=== PATIENT | female | born 1995 | race Caucasian/White ===

== ENCOUNTER 2019-09-20 16:33 | Observation (INO) | payer BC, SELFPAY ==
[2019-09-20] VITALS (32 sets, daily range): BP systolic 118; BP diastolic 60; PULSE 84–128; RESP 18; TEMP 37.1; O2SAT 97–100; BMI 28.2
[2019-09-20 17:28] LABS: Add Urine Microscopic? NO; Appearance Urine Clear (Clear); Bilirubin Urine Negative (Negative); Blood Urine Negative (Negative); Color Urine Straw (Yellow); Glucose Urine UA Negative (Negative); Ketones Urine Negative (Negative); Leukocyte Esterase Ur Negative LEU/UL (NEGATIVE); Nitrate Urine Negative (Negative); Protein Urine Negative (Negative); Specific Grav Ur 1.009 (1.001-1.035); Urobilinogen Urine Negative mg/dL (<2.0)
[2019-09-20] MEDS: TERBUTALINE SULFATE 1 MG/ML VIAL 0.25 MG SUB-Q (17:30)
--- NOTE | 2019-09-20 17:42 | OBADM ---
This patient, Cong Robison, admitted to the OB room OB Post [facility] for observation. Patient/family oriented to hospital policies and general routines including ID bracelet, bed and alarms, visiting hours, pain management, procedures, bathroom and other care routines, personal items, smoking policy, room service/diet, and visiting hours. Patient/Family are encouraged to report perceived risks to care and to ask questions if they do not understand what they are told or what they should do.
[2019-09-20] MEDS: ONDANSETRON HCL ODT 4 MG TABLET PO (19:29)
--- NOTE | 2019-09-24 11:41 | P.PNOB_ITS ---
OB - Triage/Final Diagnosis Visit Information Reason for evaluation: threatened labor Evaluation Laboratory results: Laboratory Tests 09/20/19 17:21 Urine Color Straw Urine Appearance Clear Urine pH 8.0 Ur Specific [place] 1.009 Urine Protein Negative Urine Glucose (UA) Negative Urine Ketones Negative Ur Blood (Man) Negative Urine Nitrate Negative Urine Bilirubin Negative Urine Urobilinogen Negative Ur Leukocyte Esterase Negative
== END 2019-09-20 20:22 | disposition home or self-care (01) ==
PROVIDERS: Admitting Provider Obstetrics & Gynecology; PCP Family Medicine Adolescent Medicine; Visit Provider Obstetrics & Gynecology
DX: O47.03 False labor before 37 completed weeks of gestation, third trimester (principal); Z3A.34 34 weeks gestation of pregnancy
CPT/HCPCS: 81003; 87077; 87086; 87088; 96372; A9270; G0378; G0379; J3105

== ENCOUNTER 2019-09-21 09:08 | Observation (INO) | payer BC, SELFPAY ==
[2019-09-21 09:20] VITALS: BP 118/81; PULSE 91
[2019-09-21 09:30] VITALS: BP 113/76; PULSE 103; TEMP 37.1
[2019-09-21 09:45] VITALS: BP 101/63; PULSE 81
[2019-09-21 10:00] VITALS: BP 112/72; PULSE 86
[2019-09-21 10:25] LABS: Basophils Absolute Auto 0.1 K/mm3 (0.0-0.1); Basophils Percent Auto 0.5 % (0.2-1.2); Eosinophils Percent Auto 0.1 % (0-4.4); Hematocrit 36.7 % (37.0-47.0); Hemoglobin 12.4 g/dL (12.0-15.0); Immature Granulocyte Percent A 2.8 % (0-0.5); Lymphocytes Absolute Auto 0.65 K/mm3 (0.9-3.2); Mean Corpuscular HGB Conc 33.8 g/dl (32-36); Mean Corpuscular Hemoglobin 32.6 pg (26-34); Mean Corpuscular Volume 96.6 fl (80-100); Mean Platelet Volume 8.7 fl (7.4-10.4); Monocytes Absolute Auto 0.9 K/mm3 (0.1-0.6); Monocytes Percent Auto 8.3 % (2.6-8.5); Neutrophils Absolute Auto 8.9 K/mm3 (1.3-6.7); Neutrophils Percent Auto 82.3 % (45.5-73.1); Platelet Count Result 223 k/mm3 (150-375); Red Cell Distribution Width 13.1 % (11.5-14.5); White Blood Count 10.8 K/mm3 (4.5-10.0)
[2019-09-21] MEDS: NIFEdipine 10 MG CAPSULE 20 MG PO (10:25)
[2019-09-21] MEDS: ONDANSETRON HCL ODT 4 MG TABLET PO (10:26)
[2019-09-21 10:37] LABS: Alanine Aminotransferase 19 U/L (4-35); Albumin Level 3.4 g/dL (3.5-5.1); Alkaline Phosphatase 103 U/L (38-126); Aspartate Amino Transferase 26 U/L (14-36); Bilirubin,Total 1.4 mg/dL (0.2-1.3); Blood Urea Nitrogen 8 mg/dL (7-17); Calcium 8.5 mg/dL (8.4-10.2); Carbon Dioxide 24 mmol/L (22-30); Chloride 100 mmol/L (98-107); Estimated Glomerular Filt Rate > 60; Glucose 86 mg/dL (65-105); Potassium 3.7 mmol/L (3.4-5.0); Sodium 135 mmol/L (137-145)
[2019-09-21 10:55] LABS: Add Urine Microscopic? YES; Appearance Urine Clear (Clear); Bacteria Urine Trace /hpf; Bilirubin Urine Negative (Negative); Blood Urine Negative (Negative); Color Urine Yellow (Yellow); Glucose Urine UA Negative (Negative); Ketones Urine 1+ mg/dL (Negative); Leukocyte Esterase Ur Negative LEU/UL (Negative); Nitrate Urine Negative (Negative); Protein Urine Negative (Negative); RBC Urine 0-2 /hpf (0-2); Specific Grav Ur 1.014 (1.001-1.035); Squamous Epithelial Cell Urine Many /hpf (Few); Urobilinogen Urine Negative mg/dL (<2.0); WBC Urine 0-3 /hpf
[2019-09-21 11:01] VITALS: BMI 28.2
--- NOTE | 2019-10-01 10:16 | PM.OBTRLD ---
OB - Triage/Final Diagnosis Visit Information Reason for evaluation: other (Nausea and vomiting , cramping in ) Evaluation Laboratory results: Laboratory Tests 09/21/19 09/21/19 09/21/19 10:15 10:17 10:40 WBC 10.8 H RBC 3.80 L Hgb 12.4 Hct 36.7 L MCV 96.6 MCH 32.6 MCHC 33.8 RDW 13.1 Plt Count 223 MPV 8.7 Immature Gran % (Auto) 2.8 H Neut % (Auto) 82.3 H Lymph % (Auto) 6.0 L [place] % (Auto) 8.3 Eos % (Auto) 0.1 Baso % (Auto) 0.5 Lymph # (Auto) 0.65 L [place] # (Auto) 0.9 H Eos # (Auto) 0.0 Baso # (Auto) 0.1 Abs Immat Gran (auto) 0.30 H Absolute Neuts (auto) 8.9 H Absolute Nucleated RBC 0.0 Nucleated RBC % 0.0 Sodium 135 L Potassium 3.7 Chloride 100 Carbon Dioxide 24 BUN 8 Creatinine 0.50 L Estim Creat Clear Calc Not Reportable Estimated GFR > 60 Glucose 86 Calcium 8.5 Total Bilirubin 1.4 H AST 26 ALT 19 Alkaline Phosphatase 103 Total Protein 6.0 L Albumin 3.4 L Urine Color Yellow Urine Appearance Clear Urine pH 8.0 Ur Specific [place] 1.014 Urine Protein Negative Urine Glucose (UA) Negative Urine Ketones 1+ H Ur Blood (Man) Negative Urine Nitrate Negative Urine Bilirubin Negative Urine Urobilinogen Negative Leukocyte Esterase Rfl Negative Urine RBC 0-2 Urine WBC 0-3 Ur Squamous Epith Cells Many H Urine Bacteria Trace
== END 2019-09-21 12:39 | disposition home or self-care (01) ==
PROVIDERS: Admitting Provider Obstetrics & Gynecology; PCP Family Medicine Adolescent Medicine; Visit Provider Obstetrics & Gynecology
DX: O26.893 Other specified pregnancy related conditions, third trimester (principal); R10.9 Unspecified abdominal pain; O21.2 Late vomiting of pregnancy; Z3A.34 34 weeks gestation of pregnancy
CPT/HCPCS: 36415; 80053; 81001; 85025; A9270; G0378; G0379

== ENCOUNTER 2019-10-25 05:16 | Inpatient (IN) | payer BC, SELFPAY ==
[2019-10-24 08:30] VITALS: BMI 29.3
[2019-10-24 18:17] VITALS: PULSE 88; RESP 18
[2019-10-24 18:32] VITALS: PULSE 80; RESP 20
[2019-10-25] VITALS (99 sets, daily range): BP systolic 87–146; BP diastolic 42–120; PULSE 74–168; RESP 14–20; TEMP 36.4–36.9; O2SAT 97–100
--- NOTE | 2019-10-25 05:31 | LDADM ---
This patient, Cong Robison, was admitted to Labor/Delivery/Recovery 107 on 10/25/19 at 05:16. Plans for labor, pain management and were discussed with patient. Patient/family oriented to hospital policies and general routines including ID bracelet, bed and alarms, visiting hours, pain management, procedures, bathroom and other care routines, personal items, smoking policy, room service/diet and guest tray routines, infant security routines, and visiting hours. Patient/Family are encouraged to report perceived risks to care and to ask questions if they do not understand what they are told or what they should do. See OBIX for further documentation.
[2019-10-25 05:50] LABS: Basophils Percent Auto 0.3 % (0.2-1.2); Eosinophils Percent Auto 0.4 % (0-4.4); Hematocrit 37.6 % (37.0-47.0); Hemoglobin 12.6 g/dL (12.0-15.0); Immature Granulocyte Absolute 0.23 K/mm3 (0.00-0.031); Immature Granulocyte Percent A 2.3 % (0-0.5); Lymphocytes Absolute Auto 1.79 K/mm3 (0.9-3.2); Lymphocytes Percent Auto 17.6 % (18.3-44.2); Mean Corpuscular HGB Conc 33.5 g/dl (32-36); Mean Corpuscular Hemoglobin 32.1 pg (26-34); Mean Corpuscular Volume 95.9 fl (80-100); Mean Platelet Volume 8.8 fl (7.4-10.4); Monocytes Absolute Auto 1.3 K/mm3 (0.1-0.6); Monocytes Percent Auto 12.4 % (2.6-8.5); Neutrophils Absolute Auto 6.8 K/mm3 (1.3-6.7); Platelet Count Result 236 k/mm3 (150-375); Red Blood Count 3.92 M/mm3 (4.2-5.4); Red Cell Distribution Width 13.6 % (11.5-14.5); White Blood Count 10.2 K/mm3 (4.5-10.0)
[2019-10-25] MEDS: LACTATED RINGERS 1,000 ML 125 ML IV CONT ×3 (05:56→15:50)
[2019-10-25] MEDS: AMPICILLIN 2 GM/NS 100 ML 2 GM/100 ML BAG IVPB (05:56)
[2019-10-25] MEDS: OXYTOCIN 30 UNITS/NS 500 ML 30 UNITS/500 ML BAG 6 UNITS IV CONT (05:56)
[2019-10-25 07:04] LABS: Rapid Plasma Reagin Non-Reactive (NonReactive)
[2019-10-25] MEDS: ONDANSETRON INJ 4 MG/2 ML VIAL IV PUSH (08:05)
--- NOTE | 2019-10-25 09:34 | WPDOBADMIT ---
Obstetrics - Admit Note Admission Note: record reviewed. No pertinent additions to the history and/or any subsequent changes in the physical findings that are not consistent with the expected course of the were found. Additions to the history and/or subsequent changes in the physical findings follow. Here for MIL at 39 wks. Cervix 1-2/50/-2 AROM with clear fluid. FHTs reactive.
[2019-10-25] MEDS: AMPICILLIN 1 GM/NS 50 ML 1 GM/50 ML BAG IVPB ×2 (10:06→14:23)
--- NOTE | 2019-10-25 13:27 | WPDANESEPP ---
Anes - Eval Pre Procedure Procedure: Labor epidural Date/Time: 10/25/19 13:27 Surgeon: Loren Mckenna M.D. Preop Diagnosis: pain during labor Pre Op Diagnosis: Induction of labor Patient Data Age: 24 Gender: F Height: Weight: Last Vital Signs Temp 36.6 C 10/25/19 11:30 Pulse 90 10/25/19 12:34 BP 126/62 10/25/19 12:34 Allergies Allergy/AdvReac Type Severity Reaction Status Date / Time No Known Allergies Allergy Verified 09/20/19 19:23 Home Medications Medication Instructions Recorded Confirmed Type 400 mcg PO DAILY 09/20/19 10/25/19 History ferrous sulfate 27 mg PO DAILY 09/20/19 10/25/19 History ergocalciferol (vitamin D2) 50,000 unit PO WEEKLY 09/21/19 10/25/19 History [Vitamin D2] ondansetron HCl [Zofran] 4 mg PO Q6H PRN #10 tablet 09/21/19 10/25/19 Rx Laboratory Tests 10/25/19 10/25/19 10/25/19 05:42 05:42 05:42 WBC 10.2 K/mm3 H K/mm3 (4.5-10.0) RBC 3.92 M/mm3 L M/mm3 (4.2-5.4) Hgb 12.6 g/dL g/dL (12.0-15.0) Hct 37.6 % % (37.0-47.0) MCV 95.9 fl fl (80-100) MCH 32.1 pg pg (26-34) MCHC 33.5 g/dl g/dl (32-36) RDW 13.6 % % (11.5-14.5) Plt Count 236 k/mm3 k/mm3 (150-375) MPV 8.8 fl fl (7.4-10.4) Immature Gran % (Auto) 2.3 % H % (0-0.5) Neut % (Auto) 67.0 % % (45.5-73.1) Lymph % (Auto) 17.6 % L % (18.3-44.2) [place] % (Auto) 12.4 % H % (2.6-8.5) Eos % (Auto) 0.4 % % (0-4.4) Baso % (Auto) 0.3 % % (0.2-1.2) Lymph # (Auto) 1.79 K/mm3 K/mm3 (0.9-3.2) [place] # (Auto) 1.3 K/mm3 H K/mm3 (0.1-0.6) Eos # (Auto) 0.0 K/mm3 K/mm3 (0-0.3) Baso # (Auto) 0.0 K/mm3 K/mm3 (0.0-0.1) Abs Immat Gran (auto) 0.23 K/mm3 H K/mm3 (0.00-0.031) Absolute Neuts (auto) 6.8 K/mm3 H K/mm3 (1.3-6.7) Absolute Nucleated RBC 0.0 K/mm3 K/mm3 (0.0-0.012) Nucleated RBC % 0.0 % % (0.0-0.2) RPR Non-reactive (NonReactive) Blood Type O Positive Antibody Screen Negative Patient hx anesthesia problems: none Family hx anesthesia problems: none [facility] Family History Family History (Updated 10/07/19 @ 15:40 by Basilio Juarez RN) Mother Brain tumor Father Heart disease Social History Social History Smoking status: Never smoker Substance use: never Gender identity (if verbalized by the patient): Female Spiritual care concerns: No Exam Day of Procedure 10/25/19 13:27
[2019-10-25] MEDS: ceFAZolin 2 GM/D5W 50 ML 2 GM/50 ML BAG IVPB (16:00)
--- NOTE | 2019-10-25 16:41 | P.PNOB_ITS ---
OB - PN: Subj Subjective Date/time seen: 10/25/19 16:41 Interval history: called by RN for nonvetex presentation. U/s done and breech. Plan for csecion. OB - PN: Obj Data Labs CBC & Chem 7: 10/25/19 05:42 Labs: Laboratory Results - last 24 hr 10/25/19 10/25/19 10/25/19 05:42 05:42 05:42 WBC 10.2 H RBC 3.92 L Hgb 12.6 Hct 37.6 MCV 95.9 MCH 32.1 MCHC 33.5 RDW 13.6 Plt Count 236 MPV 8.8 Immature Gran % (Auto) 2.3 H Neut % (Auto) 67.0 Lymph % (Auto) 17.6 L [place] % (Auto) 12.4 H Eos % (Auto) 0.4 Baso % (Auto) 0.3 Lymph # (Auto) 1.79 [place] # (Auto) 1.3 H Eos # (Auto) 0.0 Baso # (Auto) 0.0 Abs Immat Gran (auto) 0.23 H Absolute Neuts (auto) 6.8 H Absolute Nucleated RBC 0.0 Nucleated RBC % 0.0 RPR Non-reactive Blood Type O Positive Antibody Screen Negative OB - PN A/P Time Spent With Patient Time: Total time spent is greater than 50% in coordination of care (as documented) at patient's floor/unit and/or counseling patient:
--- NOTE | 2019-10-25 16:42 | PM.OP ---
Procedure Note - Brief Procedure Note - Brief Date of procedure: 10/25/19 Pre-op diagnosis: Induction of labor IUP 39 wks; Breech Post-op diagnosis: same Procedure performed: LTCS Anesthesia: epidural Surgeon: Loren Mckenna MD Drains: Yes (garcia) Packing: No Pathology: none sent Complications: No immediate complications Condition: stable Disposition: PACU Findings: female in double footling breech presentation; cord around shoulder and neck; 6#7oz; Apgars 9/9; nomal appearing tubes, ovaries, and uterus
--- NOTE | 2019-10-25 16:43 | PM.OBDSVD ---
DS: Diagnosis Discharge Diagnosis (1) 39 weeks gestation of : Code(s): Z3A.39 - 39 weeks gestation of Status: Acute (2) Breech presentation: Code(s): O32.1XX0 - Maternal care for breech presentation, not applicable or unspecified Status: Acute (3) delivery delivered: Code(s): O82 - Encounter for delivery without indication Status: Acute OB - DS: Summary OB Procedures : NST and Ultrasound OB Procedures Intrapartum: OB Procedures: : None Peripartum Data Delivery Method: Section complications: none Status at Discharge Functional status at discharge: independent ambulation Overall status at discharge: patient is progressing back to baseline Time Spent with Patient Time attestation: Total time spent providing and/or coordinating discharge services: DS: Data Data Completed and Pending Labs on day of discharge: Labs from last 24 hours 10/25/19 10/25/19 10/25/19 05:42 05:42 05:42 WBC 10.2 H RBC 3.92 L Hgb 12.6 Hct 37.6 MCV 95.9 MCH 32.1 MCHC 33.5 RDW 13.6 Plt Count 236 MPV 8.8 Immature Gran % (Auto) 2.3 H Neut % (Auto) 67.0 Lymph % (Auto) 17.6 L [place] % (Auto) 12.4 H Eos % (Auto) 0.4 Baso % (Auto) 0.3 Lymph # (Auto) 1.79 [place] # (Auto) 1.3 H Eos # (Auto) 0.0 Baso # (Auto) 0.0 Abs Immat Gran (auto) 0.23 H Absolute Neuts (auto) 6.8 H Absolute Nucleated RBC 0.0 Nucleated RBC % 0.0 RPR Non-reactive Blood Type O Positive Antibody Screen Negative Discharge Plan Discharge Attending physician on discharge: Loren Mckenna Discharging Clinician: Loren Mckenna Anticipated Discharge Date/Time: 10/28/19 10:12 Patient Disposition: Home, Self-Care Activity: may shower, may drive after 2 weeks and pelvic rest Diet: regular Wound Care Instructions: incision open to air Patient Instructions: Antibiotic Form Stand Alone Forms: General Discharge Information Follow-up/Referrals: Loren Mckenna MD [Physician] - 1 Week Discharge Medications: New hydrocodone-acetaminophen 5-325 mg Tablet 1 tablet PO Q3H PRN (Reason: Moderate Pain (4-6)) Qty: 15 RF: 0 Continued ergocalciferol (vitamin D2) [Vitamin D2] 1,250 mcg (50,000 unit) Capsule 50,000 unit PO WEEKLY RF: 0 400 mcg Tablet,Chewable 400 mcg PO DAILY RF: 0 ferrous sulfate 27 mg iron Tablet 27 mg PO DAILY RF: 0 Discontinued ondansetron HCl [Zofran] 4 mg Tablet 4 mg PO Q6H PRN (Reason: Vomiting) Qty: 10 RF: 0 Date of admission: 10/25/19 05:16 Primary Care Provider: Rock Conley Admitting Provider: Loren Mckenna Attending physician on admission: Loren Mckenna Condition: Stable
--- NOTE | 2019-10-25 17:32 | OP_ITS ---
DATE OF PROCEDURE: 10/25/2019 PREOPERATIVE DIAGNOSIS: Intrauterine at 39 weeks, breech. POSTOPERATIVE DIAGNOSIS: Intrauterine at 39 weeks, breech. PROCEDURE: Primary low transverse section. SURGEON: Loren Mckenna M.D. ANESTHESIA: Epidural. FINDINGS: Female in the double footling breech presentation. 6 pounds 7 ounces with Apgars of 9 and 9. Normal-appearing tubes, ovaries, and uterus. The cord was noted to be around the shoulder and the neck. ESTIMATED BLOOD LOSS: Not calculated at the time I left the operating room. DESCRIPTION OF PROCEDURE: The patient was taken to the operating room and placed under anesthesia and prepped and draped in the usual sterile fashion in the dorsal lithotomy position. She was prepped and draped in the usual sterile fashion. A Pfannenstiel skin incision was made with a scalpel and carried down to the underlying layer of the fascia. Fascia was nicked in the midline and extended laterally using the Hollins scissors. An Ochsner was used to tent the fascia, which was then dissected off using sharp and blunt dissection. The rectus muscles were in the midline. The peritoneum was tented and entered with Metzenbaum's. The incision was extended with blunt traction. A bladder blade was placed. The vesicouterine perineum was tented and entered with Metzenbaum's. The lower uterine segment was incised in a transverse fashion with a scalpel and extended laterally using blunt traction. The infant's feet were grasped and delivered through the incision. The infant was delivered to the scapula. The right arm was splinted and delivered. The infant was rotated. The left arm was splinted and delivered. The infant was extended on the abdomen, and the head was delivered. The cord was detangled, clamped and cut, and the infant was handed to the waiting OB nurse. The placenta was removed using manual traction. The uterus was cleared of all clots and debris. The uterine incision was closed using 0 Monocryl in a running locked fashion. Same suture was used to imbricate. One additional [id number] suture was required in the midline for hemostasis. The cul-de-sac was irrigated. The uterus was returned to the abdomen. The gutters were irrigated. The incision was again inspected and noted to be hemostatic. The fascia was closed using 0 Vicryl in a running fashion. The subcutaneous tissues were irrigated and made hemostatic using Bovie cautery. Skin was closed using 4-0 Vicryl in a subcuticular fashion. DermaFlex was placed over the incision. The patient was taken to Recovery in stable condition. Heike I MT: Mirela
[2019-10-25] MEDS: OXYTOCIN 30 UNITS/NS 500 ML 30 UNITS/500 ML BAG 125 UNITS IV CONT (17:37)
[2019-10-25] MEDS: KETOROLAC 30 MG/ML VIAL (*BKC) IV PUSH (18:24)
[2019-10-25] MEDS: DEXTROSE 5%/0.45% SOD CHL 1,000 ML 125 ML IV CONT (21:33)
--- NOTE | 2019-10-26 04:17 | PC.NURSE ---
Breast pump provided due to nursing with nipple shield/flat nipples. Instructions given on breast pump care and usage, pumping schedule, nipple care, and collection and storage of breast milk. Encouraged [id number], breast massage and manual expression to stimulate supply. Pumping log provided and reviewed. Assessed patient for correct flange size, placement and draw. Patient verbalizes and demonstrates understanding of instructions.
[2019-10-26] MEDS: IBUPROFEN 600 MG TABLET PO ×3 (05:00→23:06)
[2019-10-26 05:30] VITALS: BP 117/60; PULSE 81; RESP 14; TEMP 36.6; O2SAT 97
[2019-10-26 06:27] LABS: Basophils Percent Auto 0.3 % (0.2-1.2); Eosinophils Percent Auto 0.3 % (0-4.4); Hemoglobin 10.6 g/dL (12.0-15.0); Immature Granulocyte Absolute 0.13 K/mm3 (0.00-0.031); Immature Granulocyte Percent A 1.1 % (0-0.5); Lymphocytes Absolute Auto 1.56 K/mm3 (0.9-3.2); Lymphocytes Percent Auto 13.5 % (18.3-44.2); Mean Corpuscular HGB Conc 33.1 g/dl (32-36); Mean Corpuscular Volume 96.7 fl (80-100); Monocytes Absolute Auto 1.2 K/mm3 (0.1-0.6); Monocytes Percent Auto 10.2 % (2.6-8.5); Neutrophils Absolute Auto 8.7 K/mm3 (1.3-6.7); Neutrophils Percent Auto 74.6 % (45.5-73.1); Platelet Count Result 189 k/mm3 (150-375); Red Blood Count 3.31 M/mm3 (4.2-5.4); Red Cell Distribution Width 13.3 % (11.5-14.5); White Blood Count 11.6 K/mm3 (4.5-10.0)
[2019-10-26] MEDS: MULTIVIT/MIN/PREN/FOL AC/IRON TABLET 1 TAB PO (07:21)
[2019-10-26] MEDS: DOCUSATE SODIUM 100 MG CAPSULE PO ×2 (07:21→16:26)
[2019-10-26 07:30] VITALS: BP 116/62; PULSE 84; RESP 16; TEMP 36.7; O2SAT 100
--- NOTE | 2019-10-26 08:26 | P.PNOB_ITS ---
OB - PN: Subj Subjective Date/time seen: 10/26/19 08:26 Interval history: called by RN for nonvetex presentation. U/s done and breech. Plan for csecion. Patient comments: no complaints and pain well controlled [place] baby status: nursing well feeding status: exclusively breast feeding OB - PN: Obj Data Labs CBC & Chem 7: 10/26/19 05:38 Labs: Laboratory Results - last 24 hr 10/26/19 05:38 WBC 11.6 H RBC 3.31 L Hgb 10.6 L Hct 32.0 L MCV 96.7 MCH 32.0 MCHC 33.1 RDW 13.3 Plt Count 189 MPV 9.0 Immature Gran % (Auto) 1.1 H Neut % (Auto) 74.6 H Lymph % (Auto) 13.5 L [place] % (Auto) 10.2 H Eos % (Auto) 0.3 Baso % (Auto) 0.3 Lymph # (Auto) 1.56 [place] # (Auto) 1.2 H Eos # (Auto) 0.0 Baso # (Auto) 0.0 Abs Immat Gran (auto) 0.13 H Absolute Neuts (auto) 8.7 H Absolute Nucleated RBC 0.0 Nucleated RBC % 0.0 OB - PN A/P Plan day: 1 Plan: routine care Time Spent With Patient Time: Total time spent is greater than 50% in coordination of care (as documented) at patient's floor/unit and/or counseling patient: Exam GI: Other: Inc c/d/i : Bimanual exam- vagina & uterus: other (Uterus firm, nt @U)
--- NOTE | 2019-10-26 10:35 | WPDANLDPN2 ---
Anes-Prog Note L&D Date/Time: 10/26/19 10:35 Comfortable throughout: labor and section Neuraxial method: epidural Epidural/Spinal procedure site: clean & non-tender Neuro status: Neuro function grossly intact. Cardiovascular status: normal Respiratory status: normal Airway patency: baseline Mental status: baseline Post-Op hydration status: normal Vital Signs: Last Vital Signs Temp 36.7 C 10/26/19 07:30 Pulse 84 10/26/19 07:30 Resp 16 10/26/19 07:30 BP 116/62 10/26/19 07:30 Pulse Ox 100 10/26/19 07:30 I/O: Intake & Output 10/25/19 10/26/19 10/26/19 23:59 07:59 15:59 Intake Total 1050 1925 Output Total 1163 1425 600 Balance -113 500 -600 Post-procedural complaints: none Patient feedback: Patient satisfied with anesthetic care.
--- NOTE | 2019-10-26 10:35 | WPDANLDNPN2 ---
Anes-Prog Note L&D-Neuraxial Date/Time: 10/26/19 10:35 Neuraxial medications: epidural PF morphine Opiod-related complaints: none Patient feedback: Patient satisfied with post-operative pain management.
[2019-10-26 11:45] VITALS: BP 109/54; PULSE 91; RESP 18; TEMP 36.9; O2SAT 99
[2019-10-26 16:30] VITALS: BP 116/63; PULSE 82; RESP 16; TEMP 36.6; O2SAT 99
[2019-10-26 19:31] VITALS: BP 129/76; PULSE 86; RESP 18; TEMP 36.4; O2SAT 100
[2019-10-27] MEDS: MULTIVIT/MIN/PREN/FOL AC/IRON TABLET 1 TAB PO (08:23)
[2019-10-27] MEDS: DOCUSATE SODIUM 100 MG CAPSULE PO ×2 (08:23→15:44)
[2019-10-27] MEDS: IBUPROFEN 600 MG TABLET PO ×3 (08:24→21:19)
[2019-10-27 08:30] VITALS: BP 113/62; PULSE 102; RESP 18; TEMP 36.5; O2SAT 99
--- NOTE | 2019-10-27 12:44 | PM.OBPNVD ---
OB - PN: Subj Subjective Date/time seen: 10/27/19 12:44 Interval history: called by RN for nonvetex presentation. U/s done and breech. Plan for csecion. Patient comments: no complaints and pain well controlled [place] baby status: nursing well feeding status: exclusively breast feeding OB - PN: Obj Data Labs CBC & Chem 7: 10/26/19 05:38 OB - PN A/P Plan day: 2 Plan: routine care Time Spent With Patient Time: Total time spent is greater than 50% in coordination of care (as documented) at patient's floor/unit and/or counseling patient: Exam GI: Other: inc c/d/i : Bimanual exam- vagina & uterus: other (Uterus firm, nt @U)
[2019-10-27 20:40] VITALS: BP 120/65; PULSE 78; RESP 18; TEMP 37.1; O2SAT 100
[2019-10-27] MEDS: SIMETHICONE 80 MG TAB.CHEW PO (21:19)
--- NOTE | 2019-10-27 22:30 | PC.NURSE ---
Patient viewed the discharge video Mother & Baby Care, The First Two Weeks . Patient was given the opportunity and encouraged to ask questions. Patient verbalized understanding of information shared and has been given the mother/baby guide for home reference.
[2019-10-28] MEDS: SIMETHICONE 80 MG TAB.CHEW PO ×2 (06:59→12:29)
[2019-10-28] MEDS: DOCUSATE SODIUM 100 MG CAPSULE PO (07:00)
[2019-10-28] MEDS: IBUPROFEN 600 MG TABLET PO ×2 (07:00→12:28)
[2019-10-28] MEDS: MULTIVIT/MIN/PREN/FOL AC/IRON TABLET 1 TAB PO (07:00)
[2019-10-28 07:55] VITALS: BP 116/60; PULSE 82; RESP 18; TEMP 37; O2SAT 98
--- NOTE | 2019-10-28 10:09 | P.PNOB_ITS ---
OB - PN: Subj Subjective Date/time seen: 10/28/19 10:09 Interval history: called by RN for nonvetex presentation. U/s done and breech. Plan for csecion. Patient comments: no complaints and pain well controlled [place] baby status: doing well OB - PN: Obj Data Labs CBC & Chem 7: 10/26/19 05:38 OB - PN A/P Plan day: 3 Plan: routine care, discharge home, follow up 6 weeks and other (1 wk incision check through virtual) Comments: Plans mirena control Time Spent With Patient Time: Total time spent is greater than 50% in coordination of care (as documented) at patient's floor/unit and/or counseling patient: Exam GI: Other: incision c/d/i : Bimanual exam- vagina & uterus: other (Uterus firm, nt @U)
[2019-10-29 09:55] VITALS: BP 135/78; PULSE 91; RESP 20; TEMP 36.6
--- NOTE | 2019-11-21 13:41 | P.HP_ITS ---
H&P: HPI History of Present Illness Chief complaint: Induction of labor Narrative: Cong Robison is a 24 year old female G1 at 39 wks here for MIL. Discovered to be breech and taken for csection. [facility] Past Medical History Medical History (Updated 10/25/19 @ 16:44 by Loren Mckenna MD) 39 weeks gestation of Surgical History Surgical History (Updated 11/21/19 @ 13:59 by Loren Mckenna MD) S/P adenoidectomy Family History Family History (Updated 10/07/19 @ 15:40 by Basilio Juarez RN) Mother Brain tumor Father Heart disease Social History Social History Smoking status: Never smoker Substance use: never Gender identity (if verbalized by the patient): Female Spiritual care concerns: No Meds Home Medications and Allergies Home Medications Medication Instructions Recorded Confirmed Type 400 mcg PO DAILY 09/20/19 10/25/19 History ferrous sulfate 27 mg PO DAILY 09/20/19 10/25/19 History ergocalciferol (vitamin D2) 50,000 unit PO WEEKLY 09/21/19 10/25/19 History [Vitamin D2] hydrocodone-acetaminophen 1 tablet PO Q3H PRN #15 tablet 10/28/19 Rx Allergies Allergy/AdvReac Type Severity Reaction Status Date / Time No Known Allergies Allergy Verified 09/20/19 19:23 Exam Const: General: healthy appearing and alert Orientation/consciousness: patient oriented x3 Resp: Effort & Inspection: normal respiratory effort Auscultation: clear to auscultation bilaterally Cardio: Rate: regular rate Rhythm: regular rhythm GI: GI Palp: Yes Soft to palpation, No Tenderness to palpation present (GI) and No Palpable mass present : External Female Exam: normal external appearance Speculum Exam - Vagina: normal appearance of the vagina Neuro: General: patient oriented x3 Assessment and Plan Assessment and plan (1) Breech presentation: Code(s): O32.1XX0 - Maternal care for breech presentation, not applicable or unspecified Status: Acute Assessment and Plan: proceed with csection (2) 39 weeks gestation of : Code(s): Z3A.39 - 39 weeks gestation of Status: Acute
== END 2019-10-28 14:53 | disposition home or self-care (01) | DRG 788 ==
LOC: ANHLDR 16:46 → ANHOB2 19:30
PROVIDERS: Admitting Provider Obstetrics & Gynecology Gynecology; PCP Family Medicine Adolescent Medicine; Visit Provider Obstetrics & Gynecology Gynecology
PROC: 10D00Z1 Extraction of Products of Conception, Low, Open Approach (ICD-10-PCS; CPT 59514; principal; 2019-10-25 16:00)
DX: O99.824 Streptococcus B carrier state complicating childbirth (principal); Z3A.39 39 weeks gestation of pregnancy; Z37.0 Single live birth; O69.81X0 Labor and delivery complicated by cord around neck, without compression, not applicable or unspecified; O69.82X0 Labor and delivery complicated by other cord entanglement, without compression, not applicable or unspecified; O32.8XX0 Maternal care for other malpresentation of fetus, not applicable or unspecified
CPT/HCPCS: 36415; 85025; 86592; 86850; 86900; 86901; A9270; J0131; J0290; J0690; J1885; J2274; J2405; J2590; J2795; J7120

== ENCOUNTER 2022-08-15 22:05 | Emergency (ER) | payer BC, SELFPAY ==
[2022-08-15] VITALS (8 sets, daily range): BP systolic 126–129; BP diastolic 82–86; PULSE 81–100; RESP 14–27; TEMP 37; O2SAT 98–100
--- NOTE | ~2022-08-15 | CT_ITS ---
EXAMINATION: CT cervical spine wo con DATE: 08/15/2022 23:46 INDICATION: Head injury. TECHNIQUE: Computed tomography (CT) of the cervical spine was performed without intravenous contrast. Automated exposure control and iterative reconstruction technique were employed. The dose-length pro duct was 131.91 mGy-cm. COMPARISON: None FINDINGS: There is mild scarring at the lung apices. There is 4 degrees dextrocurvature of cervical s pine. Vertebral body heights and intervertebral disc heights are normal. At C7-T1, there is mild bila teral facet joint osteoarthritis. No neural foraminal stenosis or central canal stenosis. IMPRESSION: 1. No fracture. Reviewed, dictated and finalized at location A. T [employer] IMPRESSION: 1. No fracture.
--- NOTE | ~2022-08-15 | CT_ITS ---
EXAMINATION: CT brain wo con DATE: 08/15/2022 23:45 INDICATION: Syncope. Head injury. TECHNIQUE: Computed tomography (CT) of the head was performed without intravenous contrast. The mA wa s adjusted according to patient size. Iterative reconstruction technique was employed. The dose-lengt h product was 605.33 mGy-cm. COMPARISON: None FINDINGS: There is no intracranial hemorrhage, acute infarction, or abnormal intracranial mass lesion . The ventricles are normal in size. The paranasal sinuses are clear. The orbits are normal. The mast oid air cells are normal. IMPRESSION: 1. Normal brain. Reviewed, dictated and finalized at location A. GER STUDIO IMPRESSION: 1. Normal brain.
--- NOTE | ~2022-08-15 | XR_ITS ---
EXAMINATION: XR chest 2V DATE: 08/16/2022 00:48 INDICATION: Syncope. Nausea and vomiting. TECHNIQUE: Frontal and lateral views of the chest were obtained. COMPARISON: None. FINDINGS: There is mild scarring at the lung apices. No pleural effusion or pneumothorax. The heart s ize is normal. IMPRESSION: 1. Mild scarring at the lung apices. Reviewed, dictated and finalized at location A. CE LIAISON OFFICER
--- NOTE | 2022-08-15 22:09 | ECG_ITS ---
Measurements Intervals [place] Rate: 88 P: 66 CO: 142 QRS: 78 QRSD: 93 T: 26 QT: 373 QTc: 452 Interpretive Statements SINUS RHYTHM BASELINE WANDER- I, II NORMAL ECG NO PREVIOUS ECG AVAILABLE FOR COMPARISON Electronically Signed On 08-16-2022 7:58:22 [employer] by Santi Suero D.O.
[2022-08-15 22:20] LABS: Basophils Absolute Auto 0.1 K/mm3 (0.0-0.1); Basophils Percent Auto 0.7 % (0.2-1.2); Eosinophils Absolute Auto 0.1 K/mm3 (0-0.3); Eosinophils Percent Auto 0.7 % (0-4.4); Hematocrit 36.1 % (37.0-47.0); Hemoglobin 12.2 g/dL (12.0-15.0); Immature Granulocyte Absolute 0.02 K/mm3 (0.00-0.031); Immature Granulocyte Percent A 0.2 % (0-0.5); Lymphocytes Absolute Auto 3.88 K/mm3 (0.9-3.2); Lymphocytes Percent Auto 41.5 % (18.3-44.2); Mean Corpuscular HGB Conc 33.8 g/dl (32-36); Mean Corpuscular Hemoglobin 31.4 pg (26-34); Mean Platelet Volume 8.9 fl (7.4-10.4); Monocytes Absolute Auto 1.1 K/mm3 (0.1-0.6); Monocytes Percent Auto 11.2 % (2.6-8.5); Neutrophils Absolute Auto 4.3 K/mm3 (1.3-6.7); Neutrophils Percent Auto 45.7 % (45.5-73.1); Platelet Count Result 289 k/mm3 (150-375); Red Blood Count 3.88 M/mm3 (4.2-5.4); Red Cell Distribution Width 11.7 % (11.5-14.5); White Blood Count 9.3 K/mm3 (4.5-10.0)
[2022-08-15 22:38] LABS: Alanine Aminotransferase 19 U/L (6-35); Albumin Level 3.7 g/dL (3.5-5.1); Alkaline Phosphatase 49 U/L (38-126); Anion Gap 8 mmol/L (8-16); Aspartate Amino Transferase 27 U/L (14-36); Bilirubin,Total 0.6 mg/dL (0.2-1.3); Blood Urea Nitrogen 13 mg/dL (7-17); Calcium 7.6 mg/dL (8.4-10.2); Carbon Dioxide 22 mmol/L (22-30); Chloride 109 mmol/L (98-107); Estimated CRCL calculation 114 ml/min; Estimated Glomerular Filt Rate > 60; Glucose 104 mg/dL (65-110); Potassium 2.7 mmol/L (3.4-5.0); Sodium 139 mmol/L (137-145)
[2022-08-15 23:27] LABS: SPREG INTERNAL CONTROL Positive; Serum Qual hCG Negative
--- NOTE | 2022-08-15 23:28 | ED.SYNCOPE ---
HPI - Syncope General Chief Complaint: Syncope Stated Complaint: SYNCOPE/NAUSEA Time Seen by Provider: 08/15/22 22:38 History of Present Illness HPI narrative: This is a 27-year-old female with no significant past medical history, presenting to the emergency department after syncopal episode. The patient states she was sitting on the toilet, having a bowel movement when she felt flushed and nauseous and woke up on the floor. Patient's , who is at bedside, states he heard a thump and came to find her on the floor. The patient denies chest pain, or shortness of breath before or after the incident. She is not sure if she hit her head. She states she has had a few episodes of loose stools earlier today but denies vomiting prior to the fall. She has vomited since the fall. She complains of a 4/10 headache, described as pressure-like without associated weakness, numbness or change in vision. Related Data Home Medications Medication Instructions Recorded Confirmed No Home Medications 08/15/22 08/15/22 Allergies Allergy/AdvReac Type Severity Reaction Status Date / Time No Known Allergies Allergy Verified 08/15/22 22:06 Review of Systems Review of Systems: CONSTITUTIONAL: Denies fever, chills, or sweats. EYES: Denies visual changes, redness, or discharge. ENT: Denies rhinorrhea, congestion, sore throat, or otalgia. CARDIOVASCULAR: Denies chest pain, palpitations, or edema. RESPIRATORY: Denies cough or dyspnea. GASTROINTESTINAL: Nausea and vomiting denies abdominal pain, or diarrhea. GENITOURINARY: Denies dysuria or hematuria. SKIN: Denies rash or itching. MUSCULOSKELETAL: Denies back pain, joint pain, or myalgia. NEUROLOGIC: Headache denies numbness, dizziness, or weakness. PSYCHIATRIC: Denies anxiety or depression. [facility] Past Medical History Medical History 39 weeks gestation of Surgical History Surgical History S/P adenoidectomy Family History Family History Mother Brain tumor Father Heart disease Social History Social History (Updated 08/15/22 @ 23:53 by Severino Adams MD) Smoking status: Never smoker Alcohol intake: current Substance use: never Gender identity (if verbalized by the patient): Female Spiritual care concerns: No Exam Narrative: GENERAL: Well-developed, well-nourished, appears uncomfortable HEAD: Normocephalic, atraumatic. EYES: PERRLA and EOMI. ENT: Nares clear, no rhinorrhea or epistaxis. Mucous membranes moist. Oropharynx without tonsillar hypertrophy exudate or other lesions. NECK: Supple. No adenopathy or masses. No carotid bruits or JVD. No midline spine tenderness to palpation, no step-off or crepitus CHEST: Clear to auscultation. No respiratory distress. No wheezes rales or rhonchi HEART: Regular rate and rhythm. No murmur heard. Normal peripheral pulses. ABDOMEN: Soft, nontender, nondistended, normal active bowel sounds. EXTREMITIES: Normal range of motion. No edema. SKIN: Warm, dry, no rash. NEURO: No focal deficits. Cranial nerves II through XII intact. Strength 5/5 in all extremities, sensation intact bilaterally. Alert and oriented x3. PSYCH: Normal mood and affect. Course Course Emergency Course: 02:36 - Stat rad interpretation of CT C-spine shows no acute fracture or subluxation and no prevertebral soft tissue swelling. Stat rad interpretation of CT head shows no hemorrhage, hydrocephalus, mass-effect, or herniation. C-collar cleared by me. Chemistries demonstrate hypokalemia and mild hypocalcemia without other acute findings. The patient tested negative for flu and COVID. CBC was unremarkable. The patient tested negative for . A chest x-ray on my evaluation, was not concerning for acute cardiopulmonary process. EKG not concerning for arrhyt
[2022-08-15] MEDS: ONDANSETRON INJ 4 MG/2 ML VIAL IV PUSH (23:40)
[2022-08-15] MEDS: LACTATED RINGERS 1,000 ML 999 ML IV CONT (23:41)
--- NOTE | 2022-08-15 23:46 | PC.NURSE ---
Patient actively vomiting and nauseated. Potassium held at this time.
[2022-08-15 23:59] LABS: Influenza A QL RT-PCR Negative (Negative); Influenza B QL RT-PCR Negative (Negative); SARS-CoV-2 RNA PCR Negative
--- NOTE | 2022-08-16 00:36 | PC.NURSE ---
Assumed care of pt at this time, report taken from Florecita CASTRO
[2022-08-16] MEDS: MAGNESIUM SULF 2 GM/WATER 50ML 2 GM/50 ML BAG IVPB (00:51)
[2022-08-16] MEDS: PROCHLORPERAZINE EDISYLATE 10 MG/2 ML VIAL IV PUSH (00:52)
[2022-08-16] MEDS: POTASSIUM CHLORIDE 20 MEQ PACKET (FOR LIQUID) 40 MEQ PO (00:52)
[2022-08-16 01:01] VITALS: BP 117/70; PULSE 98; RESP 16; O2SAT 100
[2022-08-16 02:07] VITALS: BP 116/76; PULSE 78; RESP 13; O2SAT 100
--- NOTE | 2022-08-16 02:23 | PC.NURSE ---
Pt able to ambulate to restroom with steady gait
[2022-08-16 02:50] VITALS: BP 111/67; PULSE 89; RESP 14; O2SAT 99
== END 2022-08-16 02:52 | disposition home or self-care (01) ==
PROVIDERS: Emergency Medicine; Emergency Provider Preventive Medicine Aerospace Medicine; PCP Family Medicine Adolescent Medicine
DX: R55 Syncope and collapse (principal); S06.0XAA Concussion with loss of consciousness status unknown, initial encounter; E87.6 Hypokalemia; Z20.822 Contact with and (suspected) exposure to COVID-19; W18.11XA Fall from or off toilet without subsequent striking against object, initial encounter
CPT/HCPCS: 36415; 70450; 71046; 72125; 80053; 84703; 85025; 87502; 93005; 96361; 96365; 96375; 99284; A9270; J0131; J0780; J2405; J3475; J7120; U0003; U0005

== ENCOUNTER 2024-01-17 03:18 | Observation (INO) | payer OTHER, SELFPAY ==
[2024-01-17 04:52] VITALS: BMI 29.3
--- NOTE | 2024-01-17 04:52 | OBADM ---
This patient, Cong Robison, admitted to the OB room Labor/Delivery/Recovery 102 for observation. Patient/family oriented to hospital policies and general routines including ID bracelet, bed and alarms, visiting hours, pain management, procedures, bathroom and other care routines, personal items, smoking policy, room service/diet, and visiting hours. Patient/Family are encouraged to report perceived risks to care and to ask questions if they do not understand what they are told or what they should do.
--- NOTE | 2024-01-18 19:55 | PM.OBTRLD ---
OB - Triage/Final Diagnosis Visit Information Comments/Additional reasons for admission: I have assessed the risk for this patient, Cong Robison, and determined that she would benefit from observation care. Final Diagnosis (1) Irregular contractions: Code(s): O47.9 - False labor, unspecified Status: Acute
== END 2024-01-17 05:06 | disposition home or self-care (01) ==
PROVIDERS: Admitting Provider Obstetrics & Gynecology; PCP Family Medicine; Visit Provider Obstetrics & Gynecology
DX: O47.1 False labor at or after 37 completed weeks of gestation (principal); Z3A.38 38 weeks gestation of pregnancy
CPT/HCPCS: G0378; G0379

== ENCOUNTER 2024-01-20 02:29 | Inpatient (IN) | payer OTHER, SELFPAY ==
[2024-01-20] VITALS (331 sets, daily range): BP systolic 90–138; BP diastolic 37–97; PULSE 65–165; TEMP 36.2–37.1; O2SAT 90–100
[2024-01-20] MEDS: LACTATED RINGERS 1,000 ML 125 ML IV CONT ×4 (03:10→18:24)
[2024-01-20 03:30] LABS: Basophils Percent Auto 0.4 % (0.2-1.2); Eosinophils Percent Auto 0.4 % (0-4.4); Hematocrit 33.8 % (37.0-47.0); Hemoglobin 11.6 g/dL (12.0-15.0); Immature Granulocyte Absolute 0.12 K/mm3 (0.00-0.031); Immature Granulocyte Percent A 1.2 % (0-0.5); Lymphocytes Absolute Auto 1.84 K/mm3 (0.9-3.2); Lymphocytes Percent Auto 18.2 % (18.3-44.2); Mean Corpuscular HGB Conc 34.3 g/dl (32-36); Mean Corpuscular Hemoglobin 31.1 pg (26-34); Mean Corpuscular Volume 90.6 fl (80-100); Mean Platelet Volume 9.1 fl (7.4-10.4); Monocytes Percent Auto 9.5 % (2.6-8.5); Neutrophils Absolute Auto 7.1 K/mm3 (1.3-6.7); Neutrophils Percent Auto 70.3 % (45.5-73.1); Platelet Count Result 271 k/mm3 (150-375); Red Blood Count 3.73 M/mm3 (4.2-5.4); Red Cell Distribution Width 13.5 % (11.5-14.5); White Blood Count 10.1 K/mm3 (4.5-10.0)
[2024-01-20] MEDS: FAMOTIDINE 20 MG/2 ML VIAL IV PUSH ×2 (03:30→18:24)
--- NOTE | 2024-01-20 03:38 | LDADM ---
This patient, Cong Robison, was admitted to Labor/Delivery/Recovery 103 on 01/20/24 at 02:29. Plans for labor, pain management and were discussed with patient. Patient/family oriented to hospital policies and general routines including ID bracelet, bed and alarms, visiting hours, pain management, procedures, bathroom and other care routines, personal items, smoking policy, room service/diet and guest tray routines, security routines, and visiting hours. Patient/Family are encouraged to report perceived risks to care and to ask questions if they do not understand what they are told or what they should do. See OBIX for further documentation.
[2024-01-20] MEDS: ONDANSETRON INJ 4 MG/2 ML VIAL IV PUSH ×2 (04:25→11:37)
[2024-01-20 05:01] LABS: HIV 1/2 Ab P24 Ag Result Negative (Negative)
--- NOTE | 2024-01-20 05:51 | WPDANESEPP ---
Anes - Eval Pre Procedure Procedure: Labor Epidural Date/Time: 01/20/24 05:51 Surgeon: Yordan Preop Diagnosis: Labor Pain Pre Op Diagnosis: SROM Patient Data Age: 28 Gender: F Height: 1.7 m Weight: 87 kg Last Vital Signs Pulse 76 01/20/24 05:45 BP 129/78 01/20/24 05:45 Allergies Allergy/AdvReac Type Severity Reaction Status Date / Time No Known Allergies Allergy Verified 01/09/24 13:27 Home Medications Medication Instructions Recorded Confirmed Type vits no.126-ferrous fum 1 tablet PO DAILY 01/09/24 01/09/24 History 28 mg iron-folic acid 800 mcg tablet (Classic ) Laboratory Tests 01/20/24 03:21 WBC 10.1 H K/mm3 (4.5-10.0) RBC 3.73 L M/mm3 (4.2-5.4) Hgb 11.6 L g/dL (12.0-15.0) Hct 33.8 L % (37.0-47.0) MCV 90.6 fl (80-100) MCH 31.1 pg (26-34) MCHC 34.3 g/dl (32-36) RDW 13.5 % (11.5-14.5) Plt Count 271 k/mm3 (150-375) MPV 9.1 fl (7.4-10.4) Immature Gran % (Auto) 1.2 H % (0-0.5) Neut % (Auto) 70.3 % (45.5-73.1) Lymph % (Auto) 18.2 L % (18.3-44.2) [place] % (Auto) 9.5 H % (2.6-8.5) Eos % (Auto) 0.4 % (0-4.4) Baso % (Auto) 0.4 % (0.2-1.2) Lymph # (Auto) 1.84 K/mm3 (0.9-3.2) [place] # (Auto) 1.0 H K/mm3 (0.1-0.6) Eos # (Auto) 0.0 K/mm3 (0-0.3) Baso # (Auto) 0.0 K/mm3 (0.0-0.1) Abs Immat Gran (auto) 0.12 H K/mm3 (0.00-0.031) Absolute Neuts (auto) 7.1 H K/mm3 (1.3-6.7) Absolute Nucleated RBC 0.000 K/mm3 (0.0-0.012) Nucleated RBC % 0.0 % (0.0-0.2) RPR Pending HIV 1&2 Ab/P24 Ag 4thGn Negative (Negative) Blood Type O Positive Antibody Screen Negative : gestational age (SHANE 01/28/24, ) Patient hx anesthesia problems: none Family hx anesthesia problems: none Results Review: All pre-operative results and documents have been reviewed as part of the pre-operative evaluation. [facility] Past Medical History Medical History 39 weeks gestation of Surgical History Surgical History S/P adenoidectomy Family History Family History Mother Brain tumor Father Heart disease Social History Social History Smoking status: Never smoker Second hand tobacco smoke exposure: No Alcohol intake: current Substance use: never Do You Feel Safe in your Home?: Yes Lack of Transportation: No Lack of Food: Never True Current Housing: I Have Housing Concerned About Future Housing: No Difficulty Paying Gas/Electric Bills: No Difficulty Paying for Meds: No Currently Unemployed: No Education: Bachelor's Degree Difficulty w/ Childcare or Family Care: No Gender identity (if verbalized by the patient): Female Spiritual care concerns: No Exam Day of Procedure 01/20/24 05:51 Patient weight: normal Heart: regular rate and rhythm Lungs: normal air movement Airway: Mallampati scale class II Neurological: alert and oriented
--- NOTE | 2024-01-20 08:20 | PM.IMHP ---
H&P: HPI History of Present Illness Date/Time: 01/20/24 08:20 Chief Complaint: Pt presents after SROM at home, clear fluid. Lee irregularly, started pitocin. FHR category 1. complicated by history of a TOLAC. Pt had a after having extremity presentation. during labor in 2019. This has been uncomplicated, Consents signed. pt has been seeing dr. dunlap for her care Review of Systems Review of Systems: All systems reviewed & are unremarkable except as noted in HPI and below PMFSH Past Medical History Medical History 39 weeks gestation of Surgical History Surgical History S/P adenoidectomy Family History Family History Mother Brain tumor Father Heart disease Social History Social History Smoking status: Never smoker Second hand tobacco smoke exposure: No Alcohol intake: current Substance use: never Do You Feel Safe in your Home?: Yes Lack of Transportation: No Lack of Food: Never True Current Housing: I Have Housing Concerned About Future Housing: No Difficulty Paying Gas/Electric Bills: No Difficulty Paying for Meds: No Currently Unemployed: No Education: Bachelor's Degree Difficulty w/ Childcare or Family Care: No Gender identity (if verbalized by the patient): Female Spiritual care concerns: No Meds Home Medications and Allergies Home Medications Medication Instructions Recorded Confirmed Type vits no.126-ferrous fum 1 tablet PO DAILY 01/09/24 01/09/24 History 28 mg iron-folic acid 800 mcg tablet (Classic ) Allergies Allergy/AdvReac Type Severity Reaction Status Date / Time No Known Allergies Allergy Verified 01/09/24 13:27 Vital Signs Vital Signs - 24 hr 01/20/24 03:00 01/20/24 03:16 01/20/24 03:30 Temperature 36.6 C Pulse Rate 108 H 65 85 Blood Pressure 125/78 125/57 L 117/66 Pulse Oximetry 01/20/24 03:45 01/20/24 04:00 01/20/24 04:15 Temperature Pulse Rate 89 79 86 Blood Pressure 111/77 115/66 116/62 Pulse Oximetry 01/20/24 04:31 01/20/24 04:45 01/20/24 05:00 Temperature 36.9 C Pulse Rate 85 88 90 Blood Pressure 97/54 L 108/61 121/64 Pulse Oximetry 01/20/24 05:15 01/20/24 05:30 01/20/24 05:45 Temperature Pulse Rate 83 79 76 Blood Pressure 116/60 116/57 L 129/78 Pulse Oximetry 01/20/24 06:00 01/20/24 06:01 01/20/24 06:02 Temperature Pulse Rate 111 H 112 H Blood Pressure 120/88 135/84 Pulse Oximetry 100 01/20/24 06:03 01/20/24 06:05 01/20/24 06:06 Temperature Pulse Rate 114 H 98 Blood Pressure 138/81 124/82 Pulse Oximetry 99 01/20/24 06:08 01/20/24 06:10 01/20/24 06:11 Temperature Pulse Rate 82 81 Blood Pressure 120/73 116/72 Pulse Oximetry 100 01/20/24 06:13 01/20/24 06:15 01/20/24 06:16 Temperature Pulse Rate 92 81 Blood Pressure 114/51 L 111/58 L Pulse Oximetry 100 01/20/24 06:18 01/20/24 06:20 01/20/24 06:21 Temperature Pulse Rate 89 88 Blood Pressure 118/68 114/48 L Pulse Oximetry 100 01/20/24 06:23 01/20/24 06:25 01/20/24 06:28 Temperature Pulse Rate 90 82 83 Blood Pressure 113/56 L 109/59 L 107/62 Pulse Oximetry 100 01/20/24 06:30 01/20/24 06:35 01/20/24 06:40 Temperature Pulse Rate 79 Blood Pressure 117/97 H 119/57 L Pulse Oximetry 99 99 100 01/20/24 06:45 01/20/24 06:50 01/20/24 06:55 Temperature Pulse Rate 81 Blood Pressure 109/71 Pulse Oximetry 100 100 99 01/20/24 07:00 01/20/24 07:05 01/20/24 07:10 Temperature Pulse Rate 75 79 Blood Pressure 111/65 110/71 Pulse Oximetry 100 100 99 01/20/24 07:15 01/20/24 07:20 01/20/24 07:26 Temperature Pulse Rate 88 Blood P
[2024-01-20] MEDS: CALCIUM CARBONATE (TUMS) 500 MG (200 MG ELEMENTAL) PO (10:15)
[2024-01-20] MEDS: AMPICILLIN 2 GM/NS 100 ML 2 GM/100 ML BAG IVPB (20:05)
[2024-01-20] MEDS: OXYTOCIN 30 UNITS/NS 500 ML 30 UNITS/500 ML BAG 125 UNITS IV CONT (22:08)
--- NOTE | 2024-01-20 22:19 | P.PCNOB_ITS ---
OB - Vaginal Delivery Note Procedure Delivery date: 01/20/24 Events: Other (hx section) Delivery augmentation: Pitocin Delivery monitor: External FHT and Internal Uterine Route of delivery: Episiotomy description: None Laceration Description: Perineal - 2nd Degree and Labial (left) Delivery repair: vicryl Specimen: No Quantitative Blood Loss (ml): 150 Anesthesia type: Epidural Disposition: Floor Complications: No immediate complications [place] Baby Date of : 01/20/24 Time of : 21:36 Weeks of gestation at delivery: 38 gender: Female presentation: vertex position: Left Occiput Anterior Placenta delivery description: Spontaneous Cord Vessel Description: 3 Vessels score one minute: 8 score five minutes: 9 Narrative: mother and baby skin to skin in stable condition
[2024-01-20] MEDS: ACETAMINOPHEN 325 MG TABLET 650 MG PO (22:50)
[2024-01-20] MEDS: KETOROLAC 15 MG/ML VIAL (*BKC) IV PUSH (23:32)
[2024-01-20] MEDS: HYDROcodone/acetaminophen (*CRX) 5-325 MG TABLET 1 TAB PO (23:32)
[2024-01-21] VITALS (7 sets, daily range): BP systolic 98–127; BP diastolic 53–77; PULSE 74–100; RESP 16–18; TEMP 36.7–37.1; O2SAT 97–99
[2024-01-21] MEDS: ONDANSETRON INJ 4 MG/2 ML VIAL IV PUSH (00:15)
--- NOTE | 2024-01-21 00:43 | OBPPTRN ---
Patient transferred to post room #290 via (wheelchair ). Support person present. Oriented to unit, room, information board, rooming in, admission packet and security measures. Patient verbalizes understanding.
[2024-01-21] MEDS: HYDROcodone/acetaminophen (*CRX) 5-325 MG TABLET 1 TAB PO ×4 (02:50→21:20)
[2024-01-21] MEDS: KETOROLAC 15 MG/ML VIAL (*BKC) IV PUSH ×2 (04:52→09:17)
[2024-01-21 05:08] LABS: Hematocrit 31.8 % (37.0-47.0); Hemoglobin 10.3 g/dL (12.0-15.0)
--- NOTE | 2024-01-21 07:39 | PM.OBPNVD ---
OB - PN: Subj Subjective Date/time seen: 01/21/24 07:39 Interval history: pp day 1 doing well OB - PN: Obj Data Labs 01/21/24 04:47 Labs: Laboratory Results - last 24 hr 01/21/24 04:47 Hgb 10.3 L Hct 31.8 L OB - PN A/P Plan day: 1 Plan: routine care Time Spent With Patient Time: Total time spent is greater than 50% in coordination of care (as documented) at patient's floor/unit and/or counseling patient: Review of Systems Review of Systems: All systems reviewed & are unremarkable except as noted in HPI and below Exam Const: General: cooperative and healthy appearing Chest: Chest palpation & inspection: normal inspection of the chest Resp: Effort & Inspection: normal respiratory effort Cardio: Rate: regular rate Rhythm: regular rhythm GI: Other: soft Skin: General skin exam: normal color Extrem: General: normal to inspection Psych: Appearance: grossly normal and well kempt
--- NOTE | 2024-01-21 07:44 | WPDANLDPN2 ---
Anes-Prog Note L&D Date/Time: 01/21/24 07:44 Comfortable throughout: labor and delivery Neuraxial method: epidural Epidural/Spinal procedure site: clean & non-tender Neuro status: Neuro function grossly intact. Cardiovascular status: normal Respiratory status: normal Airway patency: baseline Mental status: baseline Post-Op hydration status: normal Vital Signs: Last Vital Signs Temp 36.7 C 01/21/24 04:00 Pulse 78 01/21/24 04:00 Resp 18 01/21/24 04:00 BP 100/63 01/21/24 04:00 Pulse Ox 97 01/21/24 04:00 O2 Del Method Room Air 01/20/24 19:06 Pain score (VAS): 2/10 I/O: Intake & Output 01/20/24 01/20/24 01/21/24 15:59 23:59 07:59 Intake Total 1000 989.6 Output Total 150 Balance 1000 839.6 Post-procedural complaints: none Patient feedback: Patient satisfied with anesthetic care.
[2024-01-21] MEDS: MULTIVIT/MIN/PREN/FOL AC/IRON TABLET 1 TAB PO (09:16)
[2024-01-21] MEDS: DOCUSATE SODIUM 100 MG CAPSULE PO ×2 (09:16→17:50)
[2024-01-21 14:06] LABS: Rapid Plasma Reagin Non-Reactive (NonReactive)
[2024-01-21] MEDS: IBUPROFEN 600 MG TABLET PO (17:50)
[2024-01-22 07:35] VITALS: BP 116/69; PULSE 100; RESP 16; TEMP 37.1; O2SAT 100
[2024-01-22] MEDS: MULTIVIT/MIN/PREN/FOL AC/IRON TABLET 1 TAB PO (08:27)
[2024-01-22] MEDS: HYDROcodone/acetaminophen (*CRX) 5-325 MG TABLET 1 TAB PO (08:27)
[2024-01-22] MEDS: IBUPROFEN 600 MG TABLET PO (08:28)
--- NOTE | 2024-01-22 09:14 | PM.OBPNVD ---
OB - PN: Subj Subjective Date/time seen: 01/22/24 09:14 Interval history: pp day 2 doing well, pain controlled Tolerating general diet Ready for discharge home today OB - PN: Obj Data Labs 01/21/24 04:47 Labs: Laboratory Results - last 24 hr 01/20/24 03:21 RPR Non-reactive OB - PN A/P Assessment and Plan (1) (vaginal after ): Code(s): O34.219 - Maternal care for unspecified type scar from previous delivery Status: Acute Plan day: 2 Plan: routine care, discharge home and follow up 6 weeks Time Spent With Patient Time: Total time spent is greater than 50% in coordination of care (as documented) at patient's floor/unit and/or counseling patient: Review of Systems Review of Systems: All systems reviewed & are unremarkable except as noted in HPI and below Exam Const: General: comfortable and no acute distress Orientation/consciousness: patient oriented x3 Resp: Effort & Inspection: normal respiratory effort
--- NOTE | 2024-01-22 10:17 | P.DS_ITS ---
DS: Admitting Diagnosis Discharge Date 01/22/24 Admitting Diagnosis rupture of membranes DS: Discharge Diagnosis Discharge Diagnosis (1) (vaginal after ): Code(s): O34.219 - Maternal care for unspecified type scar from previous delivery Status: Acute OB - DS: Summary OB Procedures : None OB Procedures Intrapartum: Spontaneous Vag Delivery OB Procedures: : None Peripartum Data Laceration Description: Perineal - 2nd Degree and Labial (left) Episiotomy description: None Time Spent with Patient Time attestation: Total time spent providing and/or coordinating discharge services: DS: Data Data Completed and Pending Labs on day of discharge: Labs from last 24 hours 01/20/24 03:21 RPR Non-reactive Discharge Plan Discharge Attending physician on discharge: Bijan Farr Discharging Clinician: Peggy Perez Patient Disposition: Home, Self-Care Activity: may shower and pelvic rest Diet: regular Patient Instructions: Antibiotic Form Stand Alone Forms: General Discharge Information Follow-up/Referrals: Peggy Perez CNM [Certified Nurse Wireless Store Manager] - 4 Weeks Discharge Medications: New hydrocodone-acetaminophen 5-325 mg Tablet 1 tablet PO Q4H PRN (Reason: Pain Rated 4-6) Qty: 15 0RF docusate sodium 100 mg Capsule 100 mg PO BID PRN (Reason: Constipation) Qty: 60 0RF ibuprofen 600 mg Tablet 600 mg PO Q6H PRN (Reason: Cramping) Qty: 30 0RF Continued Classic 28 mg iron- 800 mcg Tablet 1 tablet PO DAILY Date of admission: 01/20/24 02:29 Primary Care Provider: MercedMao Admitting Provider: Bijan Farr Attending physician on admission: Bijan Farr Condition: Stable
--- NOTE | 2024-01-22 11:03 | PC.NURSE ---
[id number]. Consulted with mother concerning needs and she shared her ability to independently latch optimally without pain. Introductions were made, then consulted with patient to assess needs related to . Mother led the conversation with her?plans to feed?her and the?experience so far. Encouraged understanding of the benefits of skin to skin, stimulating with massage touch, changing positions to encourage wakefulness, how to watch for early feeding cues, responsive feeding, feeding on demand (aiming for 8-12 times in 24 hours, about every 2-3 hours), milk production, building/maintaining a milk supply, duration of feeding, signs of adequate intake/output. Mother works well with her with encouragement and education. Reviewed positioning and ear, shoulder, hip alignment, supporting the breast to facilitate a deep latch, asymmetrical latch (off-center), leading with the chin with a big, open, wide gape and body close to mother. Infant latched optimally to the left breast in football position. Education given to the mother of how to visualize the suckling (with good rocking jaw motion), swallows (dropping of the lower jaw) and how to listen for drinking at the breast (the ka sound). was able to maintain latch without pain to mother protecting the nipple with optimal positioning and latching. Reviewed comfort measures of healing with a warm, wet washcloth to rinse breast, then leave open to air-dry, good handwashing when or touching the breast/nipples to prevent infection. Mother voiced understanding of skin to skin, stimulating with massage touch, responsive feedings, hand expressed colostrum. Resources used for education were facilitated with the visual educational handouts &mom and baby guide. Inpatient resources provided with name written on the communication board, and the mom/baby guide. Mother is feeding appropriately for growth of and understands stimulating to eat if needed. Infant has had appropriate feedings in the last 24 hours meets the outcomes for weight, output, blood sugar and jaundice at this time. Mother voiced understanding of the information shared, is confident to continue effectively her at home, when to call for assistance, denies any additional assistance or education at this time. Reported to the Primary RN.
[2024-01-24 09:46] VITALS: BP 142/85; PULSE 152; RESP 56; TEMP 36.4
== END 2024-01-22 12:53 | disposition home or self-care (01) | DRG 807 ==
LOC: ANHLDR 02:52 → ANHOB2 01-21 00:47
PROVIDERS: Advanced Practice Midwife; Admitting Provider Obstetrics & Gynecology; PCP Family Medicine; Visit Provider Obstetrics & Gynecology
DX: O34.211 Maternal care for low transverse scar from previous cesarean delivery (principal); Z37.0 Single live birth; Z3A.38 38 weeks gestation of pregnancy; O70.1 Second degree perineal laceration during delivery
CPT/HCPCS: 36415; 85014; 85018; 85025; 86592; 86703; 86850; 86900; 86901; A9270; G0432; J0290; J1885; J2405; J2590; J2795; J7120

== ENCOUNTER 2024-01-24 10:18 | Outpatient (CLI) | payer OTHER, SELFPAY ==
[2024-01-24 10:40] VITALS: BP 117/73; PULSE 79
[2024-01-24 10:45] VITALS: BP 104/72; PULSE 83
[2024-01-24 10:49] LABS: Basophils Percent Auto 0.4 % (0.2-1.2); Eosinophils Absolute Auto 0.2 K/mm3 (0-0.3); Eosinophils Percent Auto 2.2 % (0-4.4); Hematocrit 30.1 % (37.0-47.0); Hemoglobin 9.9 g/dL (12.0-15.0); Immature Granulocyte Absolute 0.19 K/mm3 (0.00-0.031); Immature Granulocyte Percent A 1.9 % (0-0.5); Lymphocytes Absolute Auto 1.47 K/mm3 (0.9-3.2); Lymphocytes Percent Auto 14.8 % (18.3-44.2); Mean Corpuscular HGB Conc 32.9 g/dl (32-36); Mean Corpuscular Hemoglobin 30.5 pg (26-34); Mean Corpuscular Volume 92.6 fl (80-100); Mean Platelet Volume 8.5 fl (7.4-10.4); Monocytes Absolute Auto 0.8 K/mm3 (0.1-0.6); Monocytes Percent Auto 7.7 % (2.6-8.5); Neutrophils Absolute Auto 7.3 K/mm3 (1.3-6.7); Platelet Count Result 303 k/mm3 (150-375); Red Blood Count 3.25 M/mm3 (4.2-5.4); Red Cell Distribution Width 13.9 % (11.5-14.5)
[2024-01-24 11:00] VITALS: BP 109/71; PULSE 92
[2024-01-24 11:00] LABS: Alanine Aminotransferase 41 U/L (6-35); Albumin Level 3.4 g/dL (3.5-5.1); Alkaline Phosphatase 101 U/L (38-126); Anion Gap 7 mmol/L (4-12); Aspartate Amino Transferase 42 U/L (14-36); Bilirubin,Total 0.9 mg/dL (0.2-1.3); Blood Urea Nitrogen 9 mg/dL (7-17); Calcium 9.1 mg/dL (8.4-10.2); Carbon Dioxide 25 mmol/L (22-30); Chloride 105 mmol/L (98-107); Estimated Glomerular Filt Rate > 60; Glucose 80 mg/dL (65-110); Sodium 137 mmol/L (137-145)
[2024-01-24 11:15] VITALS: BP 124/90; PULSE 95
== END 2024-01-24 11:30 | disposition home or self-care (01) ==
LOC: ANHOBOP 10:20 → ANHOBPP 10:21
PROVIDERS: PCP Family Medicine; Visit Provider Advanced Practice Midwife
DX: O13.9 Gestational [pregnancy-induced] hypertension without significant proteinuria, unspecified trimester (principal); Z3A.00 Weeks of gestation of pregnancy not specified
CPT/HCPCS: 36415; 80053; 84550; 85025; 99199